=== PATIENT | male | born 1995 | race Caucasian/White ===

== ENCOUNTER 2023-05-15 22:07 | Emergency (ER) | payer SELFPAY ==
[~2023-05-15] VITALS: Ht 175.3 cm; Wt 77.1 kg
[2023-05-15 22:07] VITALS: BP 121/90; PULSE 90; RESP 17; TEMP 97.7; O2SAT 99
--- NOTE | 2023-05-15 22:07 | NUR ---
[employer] [employer] FOR PREBOOK/MEDICAL CLEARANCE
[2023-05-15] MEDS ORDERED: ACETAMINOPHEN 325 MG TAB PO ONE (22:55)
--- NOTE | 2023-05-15 23:30 | NUR ---
Patient discharged with v/s stable. Written and verbal after care instructions given and explained. Patient verbalized understanding. Ambulatory with to home. All questions addressed prior to discharge. Advised to follow up with PMD.
== END 2023-05-15 23:30 ==
LOC: MED 22:07
DX: S00.81XA Abrasion of other part of head, initial encounter (principal); Z02.89 Encounter for other administrative examinations; X58.XXXA Exposure to other specified factors, initial encounter; Y93.89 Activity, other specified; Y92.89 Other specified places as the place of occurrence of the external cause; Y99.8 Other external cause status
CPT/HCPCS: 99283